=== PATIENT | female | born 1995 | race Caucasian/White ===

== ENCOUNTER 2017-12-22 11:24 | Emergency (ER) | payer OTHER ==
[2017-12-22 11:46] VITALS: RESP 16; TEMP 98.2; O2SAT 100
[2017-12-22] MEDS ORDERED: PENICILLIN V POTASSIUM 250 MG/5 ML PO ONE (13:20)
[2017-12-22 13:54] VITALS: BP 159/97; PULSE 72
== END 2017-12-22 13:48 | disposition home or self-care (01) | DRG 159 ==
LOC: ED 11:24
DX: S01.511A Laceration without foreign body of lip, initial encounter (principal); W01.0XXA Fall on same level from slipping, tripping and stumbling without subsequent striking against object, initial encounter
CPT/HCPCS: 99282; A9270-GY